=== PATIENT | male | born 1985 | race Caucasian/White ===

== ENCOUNTER 2021-03-10 11:04 | Emergency (ER) | payer SELFPAY ==
[~2021-03-10] VITALS: Ht 180.3 cm; Wt 117.9 kg
[2021-03-10 11:10] VITALS: BP 170/111
--- NOTE | 2021-03-10 11:16 | NUR ---
The patient is , from home, c/o weak and dizzy and chest pain x today. The patient is alert and oriented x4. Denies pain. In room air and denies SOB. Respiration regular and unlabored. Will continue to monitor the patient.
--- NOTE | 2021-03-10 11:41 | NUR ---
Patient eloped from facility. Dr Frances notified.
== END 2021-03-10 11:43 | disposition left against medical advice (07) ==
LOC: ER 11:05
DX: Z53.21 Procedure and treatment not carried out due to patient leaving prior to being seen by health care provider (principal); R53.1 Weakness; R42 Dizziness and giddiness; R07.89 Other chest pain; I10 Essential (primary) hypertension